=== PATIENT | male | born 1945 | race Caucasian/White ===

== ENCOUNTER 2018-01-29 08:24 | Inpatient (IN) | payer MEDICARE, MEDICAID ==
[~2018-01-29] VITALS: Ht 170.2 cm; Wt 60.3 kg
[2018-01-29] VITALS (47 sets, daily range): BP systolic 53–128; BP diastolic 27–89
--- NOTE | 2018-01-29 08:48 | NUR ---
PT REC'D TO ER VIA EMS PT LIVES AT HOME WITH DAUGHTER NNAMDI VO IN 3 JOHN PAUL HAS STAGE 3 COLON CANCER DX 09/2017 .IV STARTED 20G LEFT HAND . LABS DRAWN SENT TO LAB . COMFORT PER PT . AWAITING EVALUATION BY ER PROVIDER.
--- NOTE | 2018-01-29 08:50 | NUR ---
IV NS BOLUS PER MD BP 45/50
[2018-01-29 08:57] LABS: BASOPHILS # (AUTO) 0.2 /CMM (0.0-0.2); BASOPHILS % (AUTO) 0.2 % (0.0-2.0); HEMATOCRIT 27 % (39-51); HEMOGLOBIN 8.4 g/dL (13.5-17.5); LYMPHOCYTES # (AUTO) 53.8 /CMM (0.8-4.8); MEAN CORPUSCULAR HGB CONC 32 g/dl (31.0-36.0); MEAN CORPUSCULAR VOLUME 90 fL (80-96); MONOCYTES # (AUTO) 1.3 /CMM (0.1-1.30); MONOCYTES % (AUTO) 1.6 % (2.0-12.0); NEUTROPHILS # (AUTO) 21.7 /CMM (1.8-8.9); NEUTROPHILS % (AUTO) 28.2 % (43.0-81.0); PLATELET COUNT (AUTO) 153 /CMM (150-450); RDW COEFFICIENT OF VARIATION 16.8 (11.5-15.0); RED BLOOD CELL COUNT(AUTO) 2.94 MIL/uL (4.5-6.0)
[2018-01-29] MEDS ORDERED: IV NS 0.9% 1,000 ML BAG IV ONE ×2 (09:00→10:00)
[2018-01-29 09:05] LABS: WHITE BLOOD COUNT (AUTO) 76.8 K/uL (4.3-11.0)
[2018-01-29 09:14] LABS: ALANINE AMINOTRANSFERASE 23 U/L (12-78); ALKALINE PHOSPHATASE 221 U/L (46-116); ASPARTATE AMINOTRANSFERASE 24 U/L (15-37); BILIRUBIN,DIRECT 0.8 mg/dL (0.0-0.2); BILIRUBIN,TOTAL 1.3 mg/dL (0.2-1.0); CALCIUM, SERUM 7.7 mg/dL (8.5-10.1); CARBON DIOXIDE 19 mmol/L (21-32); CHLORIDE 92 mmol/L (98-107); CREATININE 2.7 mg/dL (0.6-1.3); GLUCOSE 141 mg/dL (74-106); POTASSIUM 3.8 mmol/L (3.5-5.1); SODIUM SERUM 131 mmol/L (136-145); TOTAL PROTEIN, SERUM 4.4 g/dL (6.4-8.2); UREA NITROGEN, BLOOD 34 mg/dL (7-18)
[2018-01-29 09:16] LABS: INR 1.51 (0.87-1.13)
[2018-01-29 09:17] LABS: TROPONIN I < 0.017 ng/mL (0.00-0.056)
[2018-01-29] MEDS ORDERED: FAMO20TA8 PO (09:19)
[2018-01-29] MEDS ORDERED: AMIO200T4 PO (09:19)
[2018-01-29] MEDS ORDERED: MIDO2.5T PO (09:19)
--- NOTE | 2018-01-29 09:20 | NUR ---
IV INFILTRATED RT HAND 20G IV NS INFUSING
[2018-01-29 09:29] LABS: ALBUMIN 1.2 g/dL (3.4-5.0)
[2018-01-29 09:46] LABS: BAND % (MANUAL) 16 % (0.0-5.0); LYMPHOCYTES % (MANUAL) 50 % (16-48); METAMYELOCYTES % 1 % (0-0); MONOCYTES % (MANUAL) 4 % (0-11.0); NEUTROPHILS % (MANUAL) 29 (42-76)
[2018-01-29] MEDS ORDERED: PIPERACILLIN /TAZOBACTAM 3.375 G in IV D5W 50 ML IV ONE (10:00)
[2018-01-29] MEDS ORDERED: VANCOMYCIN 1 GM in IV D5W 250 ML IV ONE (10:00)
[2018-01-29] MEDS ORDERED: LEVOFLOXACIN 750 MG /D5W 150ML PIGGYBACK IV ONE (10:00)
[2018-01-29] MEDS ORDERED: LEVOFLOXACIN 750 MG /D5W 150ML 150 ML IV ONE (10:04)
--- NOTE | 2018-01-29 10:10 | NUR ---
KOLB CATH INSERTED 16FR TOLERATED WELL IV LEAQUIN 759 IVPB GIVEN PER MD ORDER FAMILY AT BEDSIDE
[2018-01-29] MEDS ORDERED: Z GUARD REMEDY 2 OZ OINT TP PRN (12:00)
[2018-01-29] MEDS ORDERED: IV NS 0.9% 1,000 ML BAG IV STA (12:52)
--- NOTE | 2018-01-29 12:55 | NUR ---
CASE FINISHER NOTE 1130: Admitted 72 y/o male A/Ox3, with c/o weakness. Dx Sepsis, with PNA seen on CXR. With Zavala cath noted with minimal bleeding, no UOP since insertion per ER nurse. Flushed Zavala cath with NS, not clogged, still no UOP. With RH g20 intact, bolus 3rd bag ongoing. Zosyn started. Skin assessment done, noted with perineal and sacral redness, taken pics and attached to chart. On 3LPM of O2 via NC, sat 93%. 1200: Done with bolus 3 L, SBP 80's, will continue to monitor. 1215: Daughter Kira at bedside, discussed re: the POC, signed consent for PICC insertion. 1230: SBP 70's, updated Dr. Lima, with order to may start on Nicholas and add more 1L NS for bolus.
[2018-01-29] MEDS ORDERED: PHENYLEPHRINE 40 MG in IV D5W 250 ML IV PRN (13:00)
[2018-01-29] MEDS ORDERED: ACETAMINOPHEN 325 MG TABLET PO PRN (13:30)
[2018-01-29] MEDS ORDERED: ONDANSETRON HCL/PF 4 MG/2 ML VIAL IVP PRN (13:30)
[2018-01-29] MEDS ORDERED: NOREPINEPHRINE 8 MG in IV D5W 500 ML IV PRN ×2 (13:30→14:00)
[2018-01-29] MEDS: IV NS 0.9% 1,000 ML IV PRN (14:08)
[2018-01-29] MEDS: MEROPENEM 500 MG in IV NS 0.9% 50 ML IV SCH (14:29)
[2018-01-29] MEDS ORDERED: FEE PK DOSING 1 MIN EA MC ONE (14:50)
--- NOTE | 2018-01-29 15:56 | NUR ---
HAND PLUG SHAPER NOTE S/E by Dr. Lima, spoke with daughter Kira and the rest of family, discussed re: The POC. MD started PICC line on KERRIE, patient tolerated procedure well. S/E by Precious WASSERMAN for ID consult. S/E by Tr Rodriguez MD called Kira via phone and discussed re: the POC. Patient on 8LPM of O2 via mask at this time for episode of desat 89 on 6LPM O2 NC. Still no UOP, MD aware. said no more bolus for now for crackling sounds when auscultated, just continue NS @ 100. supply technician at bedside. Placed on KCI mattress. Placed on KCI mattress.
--- NOTE | 2018-01-29 16:44 | NUR ---
CELL GENETICIST NOTE Patient signed consent for release of info from [facility] and from Dr. Hooker in [facility]. Faxed to their medical records.
[2018-01-29] MEDS: MIDODRINE HCL (5MG) 5 MG TABLET PO SCH (16:47)
[2018-01-29] MEDS ORDERED: FAMOTIDINE (20 MG) 20 MG TABLET PO SCH (17:00)
[2018-01-29] MEDS: PHENYLEPHRINE 80 MG in IV D5W 250 ML IV PRN ×2 (19:17→21:45)
--- NOTE | 2018-01-29 20:10 | NUR ---
NIBP IN ROOM 257 NOT WORKING, NEED TO CLEAN 258 TO MOVE PT INTO THAT ROOM
[2018-01-29] MEDS ORDERED: FUROSEMIDE 40 MG/4 ML VIAL IV ONE (21:00)
[2018-01-29 21:40] LABS: ABG BASE EXCESS -5.9 mmol/L; ABG OXYGEN SATURATION 88.7 % (92.0-98.5); ABG PCO2 29.5 mmHg (35.0-45.0); ABG PH 7.403 (7.350-7.450); ABG PO2 62.9 mmHg (75.0-100.0); AaDO2 620.6 mmHg; COHb 0.3 % (0.5-1.5); MetHb 0.8 % (0.0-1.5); O2Hb 87.7 % (94.0-97.0); SITE, ABG Right Radial; VENT MODE, BG NON REBREATHER
--- NOTE | 2018-01-29 21:56 | NUR ---
ISAC HOUSTON CALLED IN BLOOD CULTURE POSITIVE FOR GRAM NEGATIVE RODS. WILL PLACE PT ON ISOLATION
--- NOTE | 2018-01-29 22:21 | NUR ---
HOME SERVICE TECHNICIAN TERESITA PRAJAPATI AT BEDSIDE TO ASSESS PT
[2018-01-29] MEDS ORDERED: PHENYLEPHRINE 10 MG/ML VIAL ONE (22:28)
[2018-01-29] MEDS ORDERED: NOREPINEPHRINE 16 MG in IV D5W 500 ML IV PRN (22:30)
--- NOTE | 2018-01-29 23:00 | NUR ---
PT PLACED ON BIPAP PER ORDER BY RT
[2018-01-29 23:24] LABS: CALCIUM, SERUM 6.3 mg/dL (8.5-10.1); CARBON DIOXIDE 19 mmol/L (21-32); CHLORIDE 97 mmol/L (98-107); CREATININE 2.5 mg/dL (0.6-1.3); GLUCOSE 143 mg/dL (74-106); MAGNESIUM 1.7 mg/dL (1.8-2.4); PHOSPHORUS 4.9 mg/dL (2.5-4.9); POTASSIUM 4.1 mmol/L (3.5-5.1); SODIUM SERUM 130 mmol/L (136-145); UREA NITROGEN, BLOOD 35 mg/dL (7-18)
--- NOTE | 2018-01-29 23:29 | NUR ---
DR HUFF AT BEDSIDE TO SEE PT
--- NOTE | 2018-01-29 23:30 | NUR ---
CRITICAL LACTIC ACID 7.1, TRENDING DOWN
[2018-01-29] MEDS: NOREPINEPHRINE 16 MG in IV D5W 500 ML IV PRN (23:49)
[2018-01-30] VITALS (57 sets, daily range): BP systolic 64–131; BP diastolic 23–72
[2018-01-30] MEDS: IV NS 0.9% 1,000 ML IV PRN ×3 (00:57→20:56)
[2018-01-30] MEDS: MEROPENEM 500 MG in IV NS 0.9% 50 ML IV SCH ×2 (01:22→14:05)
[2018-01-30] MEDS: PHENYLEPHRINE 80 MG in IV D5W 250 ML IV PRN ×5 (01:32→18:12)
[2018-01-30] MEDS ORDERED: PHENYLEPHRINE 10 MG/ML VIAL ONE (03:28)
[2018-01-30] MEDS ORDERED: NOREPINEPHRINE 4 MG/4 ML AMPUL IV ONE (03:29)
[2018-01-30] MEDS: NOREPINEPHRINE 16 MG in IV D5W 500 ML IV PRN ×3 (04:36→18:15)
[2018-01-30 05:11] LABS: BASOPHILS # (AUTO) 0.2 /CMM (0.0-0.2); BASOPHILS % (AUTO) 0.3 % (0.0-2.0); HEMATOCRIT 25 % (39-51); HEMOGLOBIN 7.8 g/dL (13.5-17.5); LYMPHOCYTES # (AUTO) 47.7 /CMM (0.8-4.8); LYMPHOCYTES % (AUTO) 62.3 % (20.0-44.0); MEAN CORPUSCULAR HGB CONC 32 g/dl (31.0-36.0); MEAN CORPUSCULAR VOLUME 90 fL (80-96); MONOCYTES # (AUTO) 0.1 /CMM (0.1-1.30); MONOCYTES % (AUTO) 0.2 % (2.0-12.0); NEUTROPHILS # (AUTO) 28.5 /CMM (1.8-8.9); NEUTROPHILS % (AUTO) 37.2 % (43.0-81.0); PLATELET COUNT (AUTO) 96 /CMM (150-450); RDW COEFFICIENT OF VARIATION 17.3 (11.5-15.0); RED BLOOD CELL COUNT(AUTO) 2.74 MIL/uL (4.5-6.0)
[2018-01-30 05:17] LABS: WHITE BLOOD COUNT (AUTO) 76.6 K/uL (4.3-11.0)
[2018-01-30 05:35] LABS: ABG BASE EXCESS -9.3 mmol/L; ABG OXYGEN SATURATION 96.8 % (92.0-98.5); ABG PCO2 27.4 mmHg (35.0-45.0); ABG PH 7.358 (7.350-7.450); ABG PO2 108.6 mmHg (75.0-100.0); COHb 0.3 % (0.5-1.5); MetHb 0.7 % (0.0-1.5); O2Hb 95.8 % (94.0-97.0); PEEP,BG 5 cm H2O; SITE, ABG Right Radial; VENT MODE, BG ST
[2018-01-30 05:42] LABS: ALANINE AMINOTRANSFERASE 25 U/L (12-78); ALKALINE PHOSPHATASE 210 U/L (46-116); ASPARTATE AMINOTRANSFERASE 49 U/L (15-37); BILIRUBIN,TOTAL 1.6 mg/dL (0.2-1.0); CALCIUM, SERUM 6.2 mg/dL (8.5-10.1); CARBON DIOXIDE 20 mmol/L (21-32); CHLORIDE 95 mmol/L (98-107); CREATININE 2.6 mg/dL (0.6-1.3); GLUCOSE 199 mg/dL (74-106); MAGNESIUM 1.7 mg/dL (1.8-2.4); POTASSIUM 3.9 mmol/L (3.5-5.1); SODIUM SERUM 128 mmol/L (136-145); TOTAL PROTEIN, SERUM 3.7 g/dL (6.4-8.2); UREA NITROGEN, BLOOD 36 mg/dL (7-18)
[2018-01-30 05:46] LABS: FERRITIN 398 ng/mL (8-388); IRON, SERUM 9 ug/dl (50-175); TOTAL IRON BINDING CAPACITY 44 ug/dl (250-450)
--- NOTE | 2018-01-30 06:00 | NUR ---
SPOKE TO PT DAUGHTER MOHAMUD, VERIFIED WITH ED STENOGRAPHIC COURT REPORTER AND TERESITA PRAJAPATI PAYROLL TAX ANALYST, PT AND DAUGHTERS WISHES FOR THE PT TO BE DNR, BUT INTUBATION OK
[2018-01-30 06:05] LABS: CHOLESTEROL 73 mg/dL (<200); HDL CHOLESTEROL 10 mg/dL (40-60); LDL 31 mg/dL (0-99); TRIGLYCERIDES 76 mg/dL (30-150)
[2018-01-30 06:06] LABS: THYROID STIMULATING HORMONE 66.306 uIU/mL (0.358-3.74)
[2018-01-30 06:13] LABS: BAND % (MANUAL) 17 % (0.0-5.0); LYMPHOCYTES % (MANUAL) 63 % (16-48); NEUTROPHILS % (MANUAL) 30 (42-76)
[2018-01-30 06:21] LABS: PHOSPHORUS 5.1 mg/dL (2.5-4.9)
--- NOTE | 2018-01-30 08:52 | NUR ---
WOUND CARE CONSULT: PT PRESENTS WITH DEEP TISSUE INJURY TO SACRUM (INTACT) AND EXTREMELY FRAGILE SKIN AND 4+ GENERALIZED PITTING EDEMA WITH DUSKY COLOR TO PLANTAR FEET AND HEELS, PRESENT ON ADMISSION. PERINEAL REDNESS NOTED. Z GUARD IN USE. PT HAS KOLB AND COLOSTOMY. PT ON FIRST STEP MATTRESS. MULTIPLE CO-MORBIDITIES NOTED INCLUDING STAGE 3 COLON CANCER AND MALNUTRITION. RECOMMEND DIETARY FOLLOW UP. ALL SKIN PROTECTION AND WOUND CARE RECOMMENDATIONS DISCUSSED WITH NURSING STAFF. WILL SEE PRN. CURRENT JOCELYN SCORE IS 12. MD IN AGREEMENT WITH PLAN OF CARE. Addendum: 01/30/18 at 0855 by STEVE AMBROCIO WNDNU Amended: Links added.
[2018-01-30] MEDS: MIDODRINE HCL (5MG) 5 MG TABLET PO SCH ×2 (09:00→17:00)
[2018-01-30] MEDS ORDERED: AMIODARONE HCL 200 MG TABLET PO SCH (09:00)
--- NOTE | 2018-01-30 09:00 | NUR ---
INITIAL NOTE: PT ON BED ON BIPAP ABG BEING DONE. PT EVALUATED BY MD CARRILLO AND MIKKI. PT ALERT BUT LETHARGIC BLOOD PRESSURE LOW INCREASED LEVO TO 40 MCG AND ON LUCIA-SYNEPHRINE AT 300 MCG THROUGH PICC LINE IN KERRIE TOO. PT FAMILY AT BEDSIDE SPEAKING WITH MD KAYE. PT 90 NSR ON MONITOR. PHARMACY CALLED MAGNESIUM 1.7 WITH NOTIFY QUALITY CONTROL LAB TECHNICIAN WHEN DRIVER RECRUITER PRESENT. PT HAS KOLB LOW URINE OUT PUT. BED IN LOW POSITION LOCKED WILL CONTINUE TO MONITOR.
[2018-01-30] MEDS ORDERED: PANTOPRAZOLE 40 MG VIAL IV SCH (09:30)
[2018-01-30 09:34] LABS: ABG BASE EXCESS -15.4 mmol/L; ABG OXYGEN SATURATION 83.6 % (92.0-98.5); ABG PCO2 38.1 mmHg (35.0-45.0); ABG PH 7.137 (7.350-7.450); ABG PO2 65.7 mmHg (75.0-100.0); AaDO2 609.2 mmHg; COHb 0.3 % (0.5-1.5); MetHb 0.7 % (0.0-1.5); O2Hb 82.8 % (94.0-97.0); SITE, ABG Right Radial
[2018-01-30 09:49] LABS: VENT MODE, BG BIPAP 15/5 PS 10
[2018-01-30] MEDS ORDERED: VANCOMYCIN 0.75 GM in IV D5W 250 ML IV SCH (10:00)
[2018-01-30] MEDS ORDERED: ALBUMIN 25% 25 GM in PREMIX 1 EA IV ONE (10:30)
[2018-01-30] MEDS ORDERED: VASOPRESSIN INJ 50 UNIT in IV D5W 497.5 ML IV PRN (10:30)
[2018-01-30 10:42] LABS: ABG BASE EXCESS -15.4 mmol/L; ABG OXYGEN SATURATION 83.6 % (92.0-98.5); ABG PCO2 38.1 mmHg (35.0-45.0); ABG PH 7.137 (7.350-7.450); ABG PO2 65.7 mmHg (75.0-100.0); AaDO2 609.2 mmHg; COHb 0.3 % (0.5-1.5); MetHb 0.7 % (0.0-1.5); O2Hb 82.8 % (94.0-97.0); SITE, ABG Right Radial; VENT MODE, BG BIPAP 15/5 PS 10
[2018-01-30] MEDS ORDERED: Magnesium 1GM/D5W 100ML PREMIX 100 ML IV SCH (12:00)
--- NOTE | 2018-01-30 17:05 | NUR ---
PT SEEN BY RENAL md Sandoval FAMILY REFUSED HD AND INTUBATION. PT REMAINS ON BIPAP. PT RECTAL TEMPERATURE 94.5 INSTITUTED WARMING MEASURES AND MONITORED BY RECTAL THERMOMETER. PT ABLE TO OPEN EYES AND INTERACT WITH FAMILY MEMBER.
--- NOTE | 2018-01-30 18:43 | NUR ---
RT AEND OF THE SHIFT REPORT, PT. 72 Y OLD MALE REMAIN ON BIPAP WITH NOTED SETTINGS, ALARMS ARE SET AND FUNCTIONAL. NO BLANCHABLE REDNESS NOTED ON NOSE, MEPILEX ON FOR SKIN PROTECTION, BIPAP PLUGGED INTO RED OUTLET, AMBU BAG REMAIN AT THE BEDSIDE. BIPAP CHANGES DONE PER DR. KAYE ORDER AT THE BEDSIDE @ 1025 AM INCREASED (IPAP TO 20) PT. FAMILY AT THE BEDSIDE T/O SHIFT PT. REMAIN ON BIPAP TOLERATING SETTINGS. CONTINUE FOR MONITOR AND, REPORT WILL PASS TO PM SHIFT.
--- NOTE | 2018-01-30 19:06 | NUR ---
CLOSING NOTE: PT REMAINS ON BIPAP ABG'S DONE PT LETHARGIC BT AROUSABLE NSR ON MONITOR PT STARTED 3RD PRESSOR BLOOD PRESSURE IMPROVING THROUGH PICC IN KERRIE. PT ON NOA HUGGER WITH RECTAL TEMPERATURE PROBE. PT REMAIN ANURIC KOLB IN PLACE NO URINE OUT PUT. BED IN LOW POSITION LOCKED. WILL ENDORSE CARE TO HEADEND TECHNICIAN RN. .
--- NOTE | 2018-01-30 19:12 | NUR ---
spoke with daughter Nia,patient speaks [place] Citizen and [place]ian.He lives locally with daughter in the upper level apartment that has elevator access. Month prior to admission, patient was ambulatory and independent with adl's. Recent declined in functioning and mobility due to weakness. Recent dx STAGE 3 metastatic colon cancer status post diverting colostomy and perforation done at [facility] back in August 2017. Not on chemo or radiation treatment, family don't want hemodialysis. He is currently on homehealth , family will bring info in am. Has walker for ambulation use. Current plan is to dc home and resume homehealth per family. Addendum: 01/30/18 at 1913 by ROGER NUNEZ RN Amended: Links added.
--- NOTE | 2018-01-30 19:30 | NUR ---
RN INITIAL NOTES RECEIVED THE PATIENT SLEEPING IN BED, UNAROUSABLE EVEN TO PAINFUL STIMULATION. PT IS ON BIPAP WITH SETTINGS 20/5, RATE 16, FIO2 100%, WITH INACCURATE O2 SATURATION READING DUE TO VERY POOR PERIPHERAL PERFUSION. PT IS SR ON THE MONITOR, HR 70'S. CURRENTLY ON 3 PRESSORS, LEVO DRIP @ 40MCG/MIN, LUCIA @ 300MCG/MIN, AND VASO @ 0.02 UNITS/MIN. LEFT LOWER QUADRANT COLOSTOMY INTACT. KOLB INTACT BUT WITH NO URINE OUTPUT. RIGHT HAND 20G AND RIGHT UPPER ARM PICC WITH NS @ 100MLS/HR, FLUSHED AND PATENT, NO S/S OF INFILTRATION/INFECTION, DRESSING CDI. PATIENT CURRENTLY HAS LOW TEMP @ 95 DEGREES F, JESSICA HUGGER AND WARM BLANKETS ON PATIENT TO INCREASE PT TEMP. BED LOW AND LOCKED, SIDERAILS UP, CALL LIGHT WITHIN REACH. WILL MONITOR CLOSELY
--- NOTE | 2018-01-30 20:30 | NUR ---
RN NOTES TALKED TO FAMILY AT BEDSIDE. ANSWERED THEIR QUESTIONS IN REGARDS TO PATIENT'S CONDITION. ADVISED THEM TO TALK TO MD IN AM IN REGARDS TO MORE INFORMATION ABOUT PATIENT'S CURRENT STATE AND FOR INFORMATION ABOUT COMFORT MEASURES
--- NOTE | 2018-01-30 22:38 | NUR ---
RN NOTES 2149 - FAMILY AT BEDSIDE CALLED FOR RN TO NOTIFY OF PATIENT'S SLOWED BREATHING. RN AT BEDSIDE TO CHECK PATIENT. NOTICED THAT PATIENT HAD SHALLOWED BREATHING. ALSO HEART RATE DROPPED FROM 60'S TO 30'S. PATIENT HAD NO PULSE, RECHECKED USING DOPPLER. PICKLING SOLUTION MAKER LEXII CONFIRMED THAT PATIENT HAD NO PULSE. PATIENT TAKEN OFF BIPAP. NO CHEST MOVEMENT AND NO BREATH SOUNDS UPON AUSCULTATION NOTED. 2149 - NOTIFIED ADMITTING SHRUTHI 2153 - NOTIFIED NURSING FRENCH WEAVER MARCELLA HERNANDEZ 2199 - NOTIFIED ON-CALL FIREBREAK CUTTER TERESITA PRAJAPATI WHO WAS ON THE FLOOR; PER FIREBREAK CUTTER, DR ALTMAN TO SIGN CERTIFICATE 2219 - NOTIFIED DOMI FROM [facility]. CASE # [id number] - [facility] ([id number]) CONTACTED BY PATIENT'S DAUGHTER ALLIE ORTIZ. RELEASE FORM SIGNED AND FAXXED TO [facility]. WILL CALL MORTUARY WHEN PATIENT IS READY TO BE PICKED UP Addendum: 01/30/18 at 3794 by CORRIE ROSS RN -- PATIENT IS DNR/DNI --
[2018-01-30] MEDS ORDERED: HYDROCORTISONE SOD SUCCINATE 100 MG/2 ML VIAL IV SCH (23:30)
[2018-01-30] MEDS ORDERED: FLUDROCORTISONE 0.1 MG TABLET NG SCH (23:30)
[2018-01-30] MEDS ORDERED: LEVOTHYROXINE INJ 100 MCG VIAL IV SCH (23:30)
--- NOTE | 2018-01-31 02:11 | NUR ---
[facility] ARRESTING GEAR OPERATOR THE PATIENT. WITNESSED RELEASE BY VENDOR QUALITY SUPERVISOR SHEELA
[2018-01-31 08:10] LABS: IMMUNOGLOBULIN M, SERUM 48 mg/dL (15-143)
[2018-01-31 09:28] LABS: IMMUNOGLOBULIN A, SERUM 269 mg/dL (61-437)
[2018-01-31 12:11] LABS: *SPE A/G RATIO 0.6 (0.7-1.7); *SPE ALBUMIN 1.4 g/dL (2.9-4.4); *SPE ALPHA-1-GLOBULIN 0.3 g/dL (0.0-0.4); *SPE ALPHA-2-GLOBULIN 0.5 g/dL (0.4-1.0); *SPE BETA GLOBULIN 0.5 g/dL (0.7-1.3); *SPE GLOBULIN, TOTAL 2.2 g/dL (2.2-3.9); *SPE M-SPIKE Not Observed g/dL (Not Observed)
[2018-02-01 01:14] LABS: IMMUNOGLOBULIN G, SERUM 912 mg/dL (700-1600)
== END 2018-01-30 21:50 | disposition expired | DRG 871 ==
LOC: ER 08:25 → ICU 10:26
PROVIDERS: ADMIT Nurse Practitioner Acute Care; ATTEND Nurse Practitioner Acute Care
PROC: 02HV33Z Insertion of Infusion Device into Superior Vena Cava, Percutaneous Approach (ICD-10-PCS; principal; 2018-01-29)
PROC: B548ZZA Ultrasonography of Superior Vena Cava, Guidance (ICD-10-PCS; 2018-01-29)
PROC: 5A09357 Assistance with Respiratory Ventilation, Less than 24 Consecutive Hours, Continuous Positive Airway Pressure (ICD-10-PCS; 2018-01-29)
DX: A41.9 Sepsis, unspecified organism (principal); I50.33 Acute on chronic diastolic (congestive) heart failure; J69.0 Pneumonitis due to inhalation of food and vomit; J96.01 Acute respiratory failure with hypoxia; K72.00 Acute and subacute hepatic failure without coma; E43 Unspecified severe protein-calorie malnutrition; N17.0 Acute kidney failure with tubular necrosis; C79.9 Secondary malignant neoplasm of unspecified site; E83.42 Hypomagnesemia; K83.1 Obstruction of bile duct; R65.21 Severe sepsis with septic shock; D68.9 Coagulation defect, unspecified; E87.1 Hypo-osmolality and hyponatremia; E87.2 Acidosis; R64 Cachexia; C19 Malignant neoplasm of rectosigmoid junction; N39.0 Urinary tract infection, site not specified; D63.0 Anemia in neoplastic disease; D72.823 Leukemoid reaction; L30.4 Erythema intertrigo; Z93.3 Colostomy status; R62.7 Adult failure to thrive; E88.09 Other disorders of plasma-protein metabolism, not elsewhere classified; E80.6 Other disorders of bilirubin metabolism; D72.820 Lymphocytosis (symptomatic); Z68.20 Body mass index [BMI] 20.0-20.9, adult; Z66 Do not resuscitate
CPT/HCPCS: 36415; 36569; 36600; 71045-TC; 80048-TC; 80053-TC; 80061-TC; 80076-TC; 82378; 82533; 82728-TC; 82746; 82784; 82803-TC; 82962-TC; 83540-TC; 83605-TC; 83735-TC; 84100-TC; 84155; 84165; 84439-TC; 84443-TC; 84484-TC; 85025-TC; 85385-TC; 85730-TC; 86334; 87040-TC; 87045-TC; 87081-TC; 87186-TC; 93307-TC; A4216; A4606; A6402; C1751; J1940; J1956; J2185; J2370; J2543; J3370; J3475; J3490; J7030; J7060; P9047; Z7610